=== PATIENT | male | born 1975 | race Caucasian/White ===

== ENCOUNTER 2018-05-09 02:22 | Emergency (ER) | payer OTHER, SELFPAY ==
[2018-05-09 02:25] VITALS: BP 137/66; PULSE 109; RESP 20; TEMP 36.5; O2SAT 97
[2018-05-09] MEDS: Ibuprofen 800 MG TAB PO (02:32)
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
[2018-05-09] MEDS: Acetaminophen 500 MG TAB 1000 MG PO (03:03)
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
[2018-05-09] MEDS: oxyCODONE 5 MG TAB 10 MG PO (04:17)
== END 2018-05-09 04:22 | disposition home or self-care (01) ==
LOC: ER 04:25
PROVIDERS: Emergency Provider Emergency Medicine; PCP Internal Medicine
DX: S62.316A Displaced fracture of base of fifth metacarpal bone, right hand, initial encounter for closed fracture (principal); Y99.0 Civilian activity done for income or pay; Y35.811A Legal intervention involving manhandling, law enforcement official injured, initial encounter
CPT/HCPCS: 26600; 73130; L3809

== ENCOUNTER 2018-05-14 08:43 | Outpatient (CLI) | payer OTHER, SELFPAY ==
--- NOTE | 2018-05-14 10:27 | DI.RAD_ITS ---
SYMPTOMS/DIAGNOSIS: F/U FX 5TH METACARPAL RT HAND RIGHT HAND: When compared with the previous examination of 05/09 again noted is the intra- articular fracture of the proximal metaphysis of the fifth metacarpal. Alignment unchanged when compared with the prior study.
== END 2018-05-14 09:03 ==
PROVIDERS: PCP Internal Medicine; Visit Provider Orthopaedic Surgery
DX: S62.316D Displaced fracture of base of fifth metacarpal bone, right hand, subsequent encounter for fracture with routine healing (principal)
CPT/HCPCS: 73130

== ENCOUNTER 2018-05-30 10:04 | Outpatient (CLI) | payer OTHER, SELFPAY ==
--- NOTE | 2018-05-30 09:58 | DI.RAD_ITS ---
SYMPTOMS/DIAGNOSIS: F/U FINGER FRACTURE RIGHT HAND: Three views. Comparison 05/14/18. There has been no change in alignment of the intra-articular fracture through the base of the right fifth metacarpal.
== END 2018-05-30 10:24 ==
PROVIDERS: PCP Internal Medicine; Visit Provider Orthopaedic Surgery
DX: S62.316D Displaced fracture of base of fifth metacarpal bone, right hand, subsequent encounter for fracture with routine healing (principal)
CPT/HCPCS: 73130

== ENCOUNTER 2018-06-13 16:00 | Outpatient (CLI) | payer OTHER, SELFPAY ==
--- NOTE | 2018-06-13 09:00 | DI.RAD_ITS ---
SYMPTOM/DIAGNOSIS: F/U FX RIGHT HAND: A nondisplaced intra-articular fracture of the proximal fifth metacarpal is identified with no interval change in alignment when compared with the prior images of 05/30/18.
== END 2018-06-13 16:20 ==
PROVIDERS: PCP Internal Medicine; Visit Provider Orthopaedic Surgery
DX: S62.346D Nondisplaced fracture of base of fifth metacarpal bone, right hand, subsequent encounter for fracture with routine healing (principal)
CPT/HCPCS: 73130

== ENCOUNTER 2018-07-04 13:32 | Outpatient (CLI) | payer OTHER, SELFPAY ==
--- NOTE | 2018-07-04 13:57 | DI.RAD_ITS ---
SYMPTOMS/DIAGNOSIS: F/U FRACTURE AT BASE OF LITTLE FINGER RIGHT HAND: A healing fracture of the proximal metaphysis of the 5th metacarpal is noted with no interval change when compared with the prior images of 06/13/2018.
== END 2018-07-04 13:52 ==
PROVIDERS: PCP Internal Medicine; Visit Provider Orthopaedic Surgery
DX: S62.346D Nondisplaced fracture of base of fifth metacarpal bone, right hand, subsequent encounter for fracture with routine healing (principal)
CPT/HCPCS: 73130

== ENCOUNTER 2020-01-29 10:10 | Outpatient (REF) | payer OTHER, SELFPAY ==
[2020-01-29 20:05] LABS: HCT 43.5 % (40.0-50.0); HGB 14.6 g/dL (13.5-17.5); Mean Corp. HGB Concentration 33.6 g/dL (32.0-36.0); Mean Corpuscular Hemoglobin 30.3 pg (27.0-33.0); Mean Corpuscular Volume 90.2 fL (80-95); Mean Platelet Volume 10.5 fL (8.0-11.0); Platelet Count 289 x1000/uL (130-400); RBC 4.82 m/cumm (4.50-6.00); RBC Distribution Width 13.2 % (11.8-14.1); White Blood Cell Count 7.99 k/cumm (4.4-10.8)
[2020-01-29 20:15] LABS: ALT 30 U/L (16-63); AST 21 U/L (15-37); Alkaline Phosphatase 115 U/L (46-116); Anion Gap 6.6 mmol/L (3-11); BUN 18 mg/dL (7-18); Bilirubin, Total 0.3 mg/dL (0.2-1.0); CO2 27.4 mmol/L (21.0-32.0); CREATININE 1.17 mg/dL (0.70-1.30); Calcium 9.3 mg/dL (8.5-10.1); Chloride 102 mmol/L (98-107); Glucose 91 mg/dL (74-106); Lipase 126 U/L (73-393); Potassium 4.4 mmol/L (3.5-5.1); Sodium 136 mmol/L (136-145); Total Protein 7.4 g/dL (6.4-8.2)
== END 2020-01-29 10:30 ==
LOC: NCHCN 10:10
PROVIDERS: PCP Internal Medicine
DX: R19.7 Diarrhea, unspecified (principal); R10.13 Epigastric pain
CPT/HCPCS: 80053; 83690; 85027

== ENCOUNTER 2023-01-17 11:13 | Outpatient (CLI) | payer OTHER, SELFPAY ==
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
== END 2023-01-17 11:33 ==
LOC: DI 11:15
PROVIDERS: PCP Internal Medicine; Visit Provider Family Medicine
DX: M79.671 Pain in right foot (principal)
CPT/HCPCS: 73630

== ENCOUNTER 2023-01-17 12:47 | Outpatient (REF) | payer OTHER, SELFPAY ==
[2023-01-17 16:24] LABS: Abs Immature Grans 0.01 10^3/uL (0.0-0.06); Absolute Basophil Count 0.05 10^3/uL (0.0-0.2); Absolute Eosinophil Count 0.16 10^3/uL (0.0-0.7); Absolute Lymphocyte Count 1.99 10^3/uL (1.2-3.4); Absolute Neutrophil Count 4.79 10^3/uL (1.2-6.7); Basophils % 0.6; Eosinophils % 2.1; HCT 50.4 % (40.0-50.0); HGB 16.7 g/dL (13.5-17.5); Immature Grans % 0.1; Lymphocytes % 25.8; MCH 29.4 pg (27.0-33.0); MCHC 33.1 % (32.0-36.0); MCV 89 fL (80-95); MPV 10.2 fL (8.0-11.0); Monocytes % 9.1; Neutrophils % 62.3; Platelet Count 255 10^3/uL (130-400); RBC 5.68 10^6/uL (4.36-5.78); RDW 12.7 % (11.8-14.1); RDW-SD 41.1 fL
[2023-01-17 16:39] LABS: Anion Gap 8.2 mmol/L (3-11); BUN 17 mg/dL (7-18); CO2 27.8 mmol/L (21.0-32.0); CREATININE 1.5 mg/dL (0.70-1.30); Calcium 9.5 mg/dL (8.5-10.1); Chloride 103 mmol/L (98-107); Estimated GFR 58.15 (mL/min/1.73m2); Glucose 101 mg/dL (74-106); Potassium 4.4 mmol/L (3.5-5.1); Sodium 139 mmol/L (136-145); Uric Acid 7.5 mg/dL (3.5-7.2)
[2023-01-17 17:03] LABS: ESR 14 mm/hr (0-15)
== END 2023-01-17 12:48 | disposition home or self-care (01) ==
LOC: NCHCN 12:47
PROVIDERS: PCP Internal Medicine; Visit Provider Family Medicine
DX: M25.50 Pain in unspecified joint (principal)
CPT/HCPCS: 80048; 85652; 84550; 85025

== ENCOUNTER 2023-04-12 10:35 | Outpatient (REF) | payer SELFPAY ==
[2023-04-12 14:48] LABS: Anion Gap 8.7 mmol/L (3-11); BUN 16 mg/dL (7-18); CO2 29.3 mmol/L (21.0-32.0); CREATININE 1.2 mg/dL (0.70-1.30); Calcium 9.6 mg/dL (8.5-10.1); Calculated LDL 120 mg/dL (<100); Chloride 104 mmol/L (98-107); Cholesterol 205 mg/dL (<200); Glucose 91 mg/dL (74-106); HDL Cholesterol 59 mg/dL (40-60); Potassium 4.6 mmol/L (3.5-5.1); Sodium 142 mmol/L (136-145); Triglyceride 133 mg/dL (<150)
== END 2023-04-12 10:36 | disposition home or self-care (01) ==
LOC: NCHCN 10:35
PROVIDERS: PCP Internal Medicine; Visit Provider Family Medicine
DX: Z00.00 Encounter for general adult medical examination without abnormal findings (principal); R10.13 Epigastric pain; Z13.220 Encounter for screening for lipoid disorders
CPT/HCPCS: 80048; 80061

== ENCOUNTER 2023-05-08 14:29 | Outpatient (REF) | payer SELFPAY ==
--- NOTE | 2023-05-08 09:35 | SKI_PTH ---
PATIENT: Keven Denise LOC: [facility] U#:[id number] AGE/SX: 47/M ROOM: RE05/08/[address]: Reji Douglass : 1975 BED: DIS: 05/08/2023 SPEC #: [id number] RECD: 05/08/23 17:09 STATUS: AKIN REAna #: [id number] KACY: 05/08/23 09:[address]: Reji Douglass DEPT: Surgical Specimen RECD BY: Razia Tovar ENTERED: 05/08/23 17:10 SP TYPE: IRAM BURDEN DR: Dustin Tracy Tissues: 1 - SKIN BIOPSY(SHAVE/PUNCH) Procedures: SKIN LEVEL 4 Comments: [id number]
== END 2023-05-08 14:30 | disposition home or self-care (01) ==
LOC: NCHCN 14:29
PROVIDERS: PCP Internal Medicine; Visit Provider Family Medicine
DX: L73.8 Other specified follicular disorders (principal)
CPT/HCPCS: 88305

== ENCOUNTER 2023-06-19 21:25 | Outpatient (REF) | payer SELFPAY | END 2023-06-19 21:26 | disposition home or self-care (01) | LOC: NCHCN 21:25 | PROVIDERS: PCP Internal Medicine; Visit Provider Nurse Practitioner Family | DX: J02.9 Acute pharyngitis, unspecified (principal) | CPT/HCPCS: 87070 ==

== ENCOUNTER 2025-02-02 12:52 | Observation (INO) | payer OTHER, SELFPAY ==
[2025-02-02] VITALS (45 sets, daily range): BP systolic 106–147; BP diastolic 66–105; PULSE 57–79; RESP 7–23; TEMP 36.8–36.9; O2SAT 93–100
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
[2025-02-02 13:09] LABS: BE (Venous) 2 mmol/L (-2-3); HCO3 (Venous) 24 mmol/L (23-28); O2 Sat (Venous) 83 %; TCO2 (Venous) 21 mmol/L (24-29); pCO2 (Venous) 28 mmHg (41-51); pH (Venous) 7.55 (7.31-7.41); pO2 (Venous) 39 mmHg
[2025-02-02 13:10] LABS: Abs Immature Grans 0.01 10^3/uL (0.0-0.06); Absolute Basophil Count 0.03 10^3/uL (0.0-0.2); Absolute Eosinophil Count 0.13 10^3/uL (0.0-0.7); Absolute Lymphocyte Count 2.08 10^3/uL (1.2-3.4); Absolute Monocyte Count 0.68 10^3/uL (0.1-0.8); Absolute Neutrophil Count 3.81 10^3/uL (1.2-6.7); Basophils % 0.4 %; Eosinophils % 1.9 %; HCT 41.1 % (40.0-50.0); HGB 14.1 g/dL (13.5-17.5); Immature Grans % 0.1 %; Lymphocytes % 30.9 %; MCH 29.6 pg (27.0-33.0); MCHC 34.3 % (32.0-36.0); MCV 86 fL (80-95); MPV 9.6 fL (8.0-11.0); Monocytes % 10.1 %; Neutrophils % 56.6 %; Platelet Count 217 10^3/uL (130-400); RBC 4.76 10^6/uL (4.36-5.78); RDW 12.3 % (11.8-14.1); RDW-SD 38.8 fL; WBC 6.74 10^3/uL (4.4-10.8)
[2025-02-02] MEDS: Ondansetron 4 MG/2 ML VIAL IVP (13:14)
[2025-02-02 13:29] LABS: ALT 24 U/L (16-63); AST 20 U/L (15-37); Albumin 3.9 g/dL (3.4-5.0); Alkaline Phosphatase 103 U/L (46-116); Anion Gap 9.6 mmol/L (3-11); BUN 17 mg/dL (7-18); Bilirubin, Total 0.5 mg/dL (0.2-1.0); CO2 25.4 mmol/L (21.0-32.0); CREATININE 1.2 mg/dL (0.70-1.30); Calcium 9.5 mg/dL (8.5-10.1); Chloride 103 mmol/L (98-107); Estimated GFR 75.06 (mL/min/1.73m2); Glucose 91 mg/dL (74-106); Magnesium 1.8 mg/dL (1.8-2.4); Potassium 3.5 mmol/L (3.5-5.1); Sodium 138 mmol/L (136-145); Total Protein 7.3 g/dL (6.4-8.2); Troponin I 9 ng/L (<or=76)
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
[2025-02-02 14:02] LABS: Bilirubin Negative (Negative); Blood Negative (Negative); Clarity Clear (Clear); Glucose Negative (Negative); Ketones Trace mg/dL (Negative); Leukocyte Esterase Negative (Negative); Nitrite Negative (Negative); Specific Gravity 1.015 (1.005-1.025); Urobilinogen 0.2 mg/dL (Up to 0.2); pH 7.5 (5-8)
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
[2025-02-02 15:19] LABS: Troponin I 16 ng/L (<or=76)
[2025-02-02 16:22] LABS: BE (Venous) 1 mmol/L (-2-3); HCO3 (Venous) 26 mmol/L (23-28); O2 Sat (Venous) 76 %; TCO2 (Venous) 23 mmol/L (24-29); pCO2 (Venous) 45 mmHg (41-51); pH (Venous) 7.36 (7.31-7.41); pO2 (Venous) 42 mmHg
[2025-02-02 16:52] LABS: Troponin I 19 ng/L (<or=76)
[2025-02-03] VITALS (11 sets, daily range): BP systolic 99–114; BP diastolic 62–84; PULSE 50–89; RESP 13–26; TEMP 36.7–37.2; O2SAT 95–98
--- NOTE | 2025-02-03 08:28 | W.NUTRFU ---
Date of service: 02/03/25 Time of Service: 08:28 Nutrition Note NOTE: Pt chart reviewed and initially assessed as low nutrition risk. Will monitor intake, nutrition-related labs, weight and check in with patient during admission to ensure his diet needs and preferences are met. Time Spent in Nutritional Counseling and Treatment: 0
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
== END 2025-02-03 09:10 | disposition home or self-care (01) ==
LOC: ER 16:05 → ICU 18:08
PROVIDERS: Admitting Provider Family Medicine; Emergency Provider Emergency Medicine; PCP Internal Medicine; Responsible Provider Family Medicine; Visit Provider Family Medicine
DX: T70.3XXA Caisson disease [decompression sickness], initial encounter (principal); E87.3 Alkalosis; R07.89 Other chest pain; R11.0 Nausea; F43.10 Post-traumatic stress disorder, unspecified; F41.9 Anxiety disorder, unspecified; W94 Exposure to high and low air pressure and changes in air pressure; Y99.0 Civilian activity done for income or pay
CPT/HCPCS: 00123; 36415; 80053; 82805; 93005; 96374; 99285; 71046; 81003; 83735; 84484; 85025; 93010; 99222; 99239; G0378; J2405